=== PATIENT | male | born 1990 | race Two or more races ===

== ENCOUNTER 2022-07-23 08:11 | Emergency (ER) | payer MEDICAID, MEDICARE ==
[~2022-07-23] VITALS: Ht 175.3 cm; Wt 77.1 kg
--- NOTE | 2022-07-23 08:15 | NUR ---
PATIENT BIBA TO BED 4.
[2022-07-23 08:16] VITALS: BP 147/95
[2022-07-23] MEDS ORDERED: NACL 0.9% 1,000 ML IV ONE (08:20)
--- NOTE | 2022-07-23 08:44 | NUR ---
32/M BIBA FROM HOME C/O GEN WEAK AND UNABLE TO BEAR WEIGHT TO LEGS ONSET 1AM TODAY. DENIES ANY INJURY OR FALL. DENIES LOC. PT REPORTS SUDDEN ONSET OF LEG WEAKNESS. PT STATES SAME S/SX HAS HAPPENED 6 MONTHS AGO AND WAS SEEN AT A HOSPITAL AND WAS TOLD HIS POTASSIUM WAS LOW. DENIES TAKING ANY POTASSIUM SUPPLEMENTS AT THIS TIME. TACHY OF 134 AT THIS TIME. AAO4, ON MONITOR, IV ESTABLISHED TO LEFT AC WITH 20G. BLOOD DRAWN AND SENT TO LAB PMH: DENIES
[2022-07-23 09:01] LABS: BASOPHILS # (AUTO) 0.1 K/uL (0.00-0.22); BASOPHILS % (AUTO) 0.8 % (0.0-2.0); EOSINOPHILS # (AUTO) 0.2 K/uL (0-0.4); EOSINOPHILS % (AUTO) 1.7 % (0.0-4.0); HEMATOCRIT 43.7 % (36-52); HEMOGLOBIN 14.1 g/dL (12.0-18.0); LYMPHOCYTES # (AUTO) 4.1 K/uL (2.0-11.5); LYMPHOCYTES % (AUTO) 39.1 % (20.5-51.1); MEAN CORPUSCULAR HEMOGLOBIN 23 pg (27-31); MEAN CORPUSCULAR HGB CONC 32 g/dL (33-37); MEAN CORPUSCULAR VOLUME 71.5 fL (80-94); MONOCYTES # (AUTO) 1.4 K/uL (0.8-1.0); MONOCYTES % (AUTO) 13.5 % (1.7-9.3); NEUTROPHILS # (AUTO) 4.7 K/uL (1.8-7.7); NEUTROPHILS % (AUTO) 44.9 % (42.2-75.2); PLATELET COUNT (AUTO) 205 K/uL (140-450); RED BLOOD CELL COUNT(AUTO) 6.11 MIL/uL (4.20-6.10); RED CELL DISTRIBUTION WIDTH 15.3 % (11.6-13.7); WHITE BLOOD COUNT (AUTO) 10.5 K/uL (4.8-10.8)
[2022-07-23 09:41] LABS: ALBUMIN 3.8 g/dL (3.4-5.0); ANION GAP 12.3 (8-16); ASPARTATE AMINOTRANSFERASE 28 U/L (15-37); CARBON DIOXIDE 29.4 mmol/L (21-32); CHLORIDE 101 mmol/L (98-107); CREATININE 0.5 mg/dL (0.6-1.3); GFR ARICAN-AMERICAN 245 mL/min (>90); GLUCOSE 118 mg/dL (74-106); POTASSIUM 3.7 mmol/L (3.5-5.1); SODIUM SERUM 139 mmol/L (136-145); TOTAL BILIRUBIN 0.3 mg/dL (0.0-1.0); UREA NITROGEN, BLOOD 13 mg/dL (7-18)
--- NOTE | 2022-07-23 09:51 | NUR ---
PATIENT AMBULATED TO RESTROOM WITH STEADY GAIT.
--- NOTE | 2022-07-23 09:51 | NUR ---
PT UABLE TO PROVIDE URINE AT THIS TIME. WILL ATTEMPT LATER
[2022-07-23 10:12] VITALS: BP 132/81
--- NOTE | 2022-07-23 10:20 | NUR ---
Patient discharged with v/s stable. Written and verbal after care instructions given and explained. Patient verbalized understanding. Ambulatory with steady gait. All questions addressed prior to discharge. Advised to follow up with PMD.
== END 2022-07-23 10:20 | disposition home or self-care (01) ==
LOC: MED 08:11
DX: M62.81 Muscle weakness (generalized) (principal)
CPT/HCPCS: 36415; 80053; 82330; 84484; 85025; 93005; 99284